=== PATIENT | female | born 1950 | race Caucasian/White ===

== ENCOUNTER → 2017-09-25 | Outpatient (CLI) | payer BC ==
[~2017-09-25] MED LIST: ESCI10TA17 PO; RANI150T3 PO
--- NOTE | 2017-09-25 19:33 | EXERCISE STRESS TEST ---
INDICATION: Abnormal EKG. Baseline EKG, normal sinus rhythm with a ventricular rate of [address] abnormalities. STRESS EKG: The patient exercised for 9 minutes and 10 seconds achieving 10.3 mets, heart rate was 158-151 representing 97% of maximum predicted heart rate. Blood pressure kristi from 92/55-165/69. Sole was no significant exercise induced stress EKG changes. There were no significant arrhythmias. IMPRESSION: 1. Negative stress EKG for ischemia at 97% maximum predicted heart rate. 2. Excellent functional capacity, exercised for 9 minutes, achieving 10.3 mets. 3. Normal hemodynamic response to exercise. No exercise induced chest pain. 3. Mantilla treadmill score of 9 representing low risk for future adverse cardiac events.
== END | disposition home or self-care (01) ==
LOC: C.CPL 08:29
PROVIDERS: ATTEND Family Medicine
DX: R94.31 Abnormal electrocardiogram [ECG] [EKG] (principal)

== ENCOUNTER → 2017-11-12 | Outpatient (CLI) | payer BC | END | disposition home or self-care (01) | LOC: C.MAMM 15:17 | PROVIDERS: ATTEND Family Medicine | DX: M85.851 Other specified disorders of bone density and structure, right thigh (principal); M85.852 Other specified disorders of bone density and structure, left thigh ==